=== PATIENT | female | born 1945 | race Caucasian/White ===

== ENCOUNTER 2023-06-19 08:10 | Outpatient (AMB) | payer MEDICARE, SELFPAY ==
[2023-06-19 08:29] VITALS: BP 110/72; PULSE 64; O2SAT 97; BMI 38.1
--- NOTE | 2023-06-19 08:29 | MHC.PC.OV ---
Vital Signs 06/19/23 08:29 Height 5 ft Weight 195 lb BMI 38.1 BP 110/72 Blood Pressure Location Lt brachial Position Sitting Pulse 64 Pulse Source Pulse Oximeter Pulse Oximetry (%) 97 Oxygen Delivery Method Room Air Intake Visit Reasons: 3 month follow up Intake Note: Pt is here today for 3 months follow up visit. Allergies atorvastatin [Lipitor] Allergy (Unknown, Verified 06/19/23 08:31) Muscle Pain latex Allergy (Unknown, Verified 06/19/23 08:31) Rash pravastatin [Pravachol] Allergy (Unknown, Verified 06/19/23 08:31) Muscle Pain lisinopril Adverse Reaction (Unknown, Verified 06/19/23 08:31) Cough Erythromycin Allergy (Unknown, Uncoded 06/19/23 08:31) upset stomach Medication List - Last Reconciled 06/19/23 by Kina Esparza MD albuterol sulfate 90 mcg/actuation (ProAir HFA) 2 puffs inhalation Q6H PRN amlodipine 5 mg PO DAILY atenolol 100 mg PO DAILY blood sugar diagnostic (Contour Next Test Strips) test once a day DX: E11.9 empagliflozin-linagliptin 25-5 mg (Glyxambi) 1 tab PO DAILY glimepiride 2 mg PO BID hydrochlorothiazide 25 mg PO DAILY lancets (Microlet Lancet) test once a day DX:E11.9 losartan 100 mg PO DAILY metformin 1,000 mg PO BID omeprazole 20 mg PO DAILY pravastatin 40 mg PO DAILY Tobacco use date assessed: 06/19/23 Dental Screening Dental Screen Date: 06/19/23 Did you have a dental visit in the last 12 months?: Yes Did you have a dental problem in the last 6 months where you did not have access to dental care?: No Was dental information given to patient?: Patient has dentist HPI 3 month follow up HPI Details Pt presents for f/u DM 2, HTN, hyperlipid, stable on meds. Pt could not afford Trulicity. PFSH Medical History (Updated 02/13/23 @ 10:18 by Kina Esparza MD) Asthma Diabetes HTN (hypertension) Hx of bone density study Hyperlipidemia Overweight Sciatica Surgical History No pertinent past surgical history Family History Father Heart disease Mother Diabetes Social History Housing: Apartment Alcohol intake: current Alcohol intake frequency: holidays/special occasions only Patient Tobacco Use Status: Never used Tobacco e-Cigarette/Vaping Use: Never Used Current occupational status: retired Cognitive needs: No Hearing needs: No Vision needs: No Questionnaire Thrive Questionnaire Date Thrive assessed: 02/13/23 JULIETA-7 AMB Questionnaire JULIETA-7 Date JULIETA - 7 assessed: 02/13/23 Source: Developed by Drs. Kenny Pal, Juanita Tobin, Yonatan Marlow and colleagues, with an educational milana from [employer]. Review of Systems Const All systems reviewed & are unremarkable except as noted in HPI and below Reports no additional complaints Eyes Reports no additional complaints Card Reports no additional complaints Resp Reports no additional complaints GI Reports no additional complaints Reports no additional complaints Physical exam (Primary Care) Vital Signs: Last Vital Signs Pulse 64 06/19/23 08:29 BP 110/72 06/19/23 08:29 Pulse Ox 97 06/19/23 08:29 Oxygen Delivery Method Room Air 06/19/23 08:29 BMI result Body Mass Index 38.1 Tobacco/Smoking Status: Tobacco use Status Tobacco use date assessed 06/19/23 06/19/23 08:34 Patient Tobacco Use Status Never used Tobacco 06/19/23 08:34 e-Cigarette/Vaping Use Never Used 06/19/23 08:34 Thrive Assessment: Date of Thrive Assessment Date Thrive assessed 02/13/23 06/19/23 08:34 Const General: no acute distress HENMT Head: Yes normal to inspection Eyes General: appearance normal, both eyes and all related structures Resp Effort & Inspection: normal respiratory effort Auscultation: clear to auscultation bilaterally Cardio Rhythm: regular rhythm Heart sounds: S1 normal heart sound present and S2 normal heart sound present GI Inspection: Yes normal to inspection Palpation (GI): Soft to palpation Percussion: Yes normal to percussion Auscultation: normal bowel sounds Assessment and Plan Assessment & Plan (1) Hyperlipidemia: Code(s): E78.5 - Hyperlipidemia, unspecified Plan: cont statin (2) Diabetes: Code(s): E11.9 - Type 2 diabetes mellitus without complications Plan: a1c is 7.9, ADA diet, exercise, weight loss discussed, pt will check the elias of Ozempic, she will try to get Shahram sensor f/u 4 months (3) HTN (hypertension): Code(s): I10 - Essential (primary) hypertension Plan: cont meds Orders: Orders Comprehensive [place]. Panel Fast 4 Months E11.9 - Type 2 diabetes mellitus without complications, E78.5 - Hyperlipidemia, unspecified, I10 - Essential (primary) hypertension Hemoglobin A1c 4 Months E11.9 - Type 2 diabetes mellitus without complications, E78.5 - Hyperlipidemia, unspecified, I10 - Essential (primary) hypertension Lipid Panel 4 Months E11.9 - Type 2 diabetes mellitus without complications, E78.5 - Hyperlipidemia, unspecified, I10 - Essential (primary) hypertension Microalbumin, Random (w Creat) 4 Months E11.9 - Type 2 diabetes mellitus without complications, E78.5 - Hyperlipidemia, unspecified, I10 - Essential (primary) hypertension Medications: New flash glucose sensor (FreeStyle Shahram 14 Day Sensor kit) As directed 1 ea 5RF E11.9 - Type 2 diabetes mellitus without complications Coding Level of Care Code Est Pt Level 4 (57171) Diagnoses Hyperlipidemia E78.5 Diabetes E11.9 HTN (hypertension) I10
== END 2023-06-19 15:24 | disposition home or self-care (01) ==
PROVIDERS: Visit Provider Internal Medicine
DX: E78.5 Hyperlipidemia, unspecified (principal); E11.9 Type 2 diabetes mellitus without complications; I10 Essential (primary) hypertension
CPT/HCPCS: 99214

== ENCOUNTER 2023-11-06 09:10 | Outpatient (AMB) | payer MEDICARE, SELFPAY ==
[2023-11-06 09:10] VITALS: BP 128/70; PULSE 73; O2SAT 96; BMI 37.5
--- NOTE | 2023-11-06 09:10 | A.OFFPC_ITS ---
Vital Signs 11/06/23 09:10 Height 5 ft Weight 192 lb BMI 37.5 BP 128/70 Blood Pressure Location Lt brachial Position Sitting Pulse 73 Pulse Source Pulse Oximeter Pulse Oximetry (%) 96 Oxygen Delivery Method Room Air Intake Visit Reasons: 4 month follow up DM Intake Note: Pt is here today for 4 months follow up visit on DM. Allergies atorvastatin [Lipitor] Allergy (Unknown, Verified 11/06/23 09:18) Muscle Pain latex Allergy (Unknown, Verified 11/06/23 09:18) Rash pravastatin [Pravachol] Allergy (Unknown, Verified 11/06/23 09:18) Muscle Pain lisinopril Adverse Reaction (Unknown, Verified 11/06/23 09:18) Cough Erythromycin Allergy (Unknown, Uncoded 11/06/23 09:18) upset stomach Tobacco use date assessed: 11/06/23 Fall risk assessment: No Falls in past year Last assessed Fall Risk: 11/06/23 Dental Screening Dental Screen Date: 11/06/23 Did you have a dental visit in the last 12 months?: Yes Did you have a dental problem in the last 6 months where you did not have access to dental care?: No Was dental information given to patient?: Patient has dentist HPI 4 month follow up DM HPI Details PRESENTS FOR THE FOLLOW-UP OF TYPE 2 DIABETES HYPERTENSION HYPERLIPIDEMIA. She reports increased gas, bloating and intermittent heartburn since she started higher dose (0.5 mg) of Ozempic. Patient also had an episode of hypoglycemia after exercise class with the glucose level dropping to 60s. PFS Medical History (Updated 02/13/23 @ 10:18 by Kina Esparza MD) Sciatica Overweight Hx of bone density study Asthma Hyperlipidemia HTN (hypertension) Diabetes Surgical History No pertinent past surgical history Family History Father Heart disease Mother Diabetes Social History Housing: Apartment Alcohol intake: current Alcohol intake frequency: holidays/special occasions only Patient Tobacco Use Status: Never used Tobacco e-Cigarette/Vaping Use: Never Used Current occupational status: retired Cognitive needs: No Hearing needs: No Vision needs: No Questionnaire PHQ-9 Over the last 2 weeks, how often have you been bothered by any of the following problems? 1. Little interest or pleasure in doing things: not at all 2. Feeling down, depressed, or hopeless: not at all 3. Trouble falling or staying asleep, or sleeping too much: not at all 4. Feeling tired or having little energy: not at all 5. Poor appetite or overeating: not at all 6. Feeling bad about yourself - or that you are a failure or have let yourself or your family down: not at all 7. Trouble concentrating on things, such as reading the newspaper or watching television: not at all 8. Moving or speaking so slowly that other people could have noticed. Or the opposite - being so fidgety or restless that you have been moving around a lot more than usual: not at all 9. Thoughts that you would be better off or of hurting yourself in some wa y: not at all Total score: 0 Depression Screening Interpretation: Negative Depression Screening Done: Yes Source: Developed by Drs. Kenny Pal, Juanita Tobin, Yonatan Marlow and colleagues, with an educational milana from [employer]. Thrive Questionnaire Date Thrive assessed: 11/06/23 I am a: Patient What is your living situation today?: I have a steady place to live Within the past 12 months, did the food you bought not last and you didn't have the money to get more?: Never true Within the past 12 months, did you worry whether your food would run out before you got money to buy more?: Never true Do you have trouble paying for medicines?: No Do you have trouble getting transportation to medical appointments?: No Do you have trouble paying your heating and electricity bill?: No Do you have trouble taking care of your child, family member or friend?: No Do you have trouble with day-to-day activities such as bathing, preparing meals, shopping, managing finances, etc.?: No Are you currently unemployed and looking for a job?: No Are you interested in more education?: No Please select the resources that you would like help with: None Currently or been in a relationship where the following occur: no concerns reported AUDIT C Alcohol Use Questionnaire (AUDIT-C) 1. How often do you have a drink containing alcohol?: Never 3. How often do you have six or more drinks on one occasion?: Never Total Score: 0 JULIETA-7 AMB Questionnaire JULIETA-7 Date JULIETA - 7 assessed: 11/06/23 Feeling nervous, anxious, or on edge: 0 = Not at all Not being able to stop or control worryin = Not at all Worrying too much about different things: 0 = Not at all Trouble relaxin = Not at all Being so restless that it is hard to sit still: 0 = Not at all Becoming easily annoyed or irritable: 0 = Not at all Feeling afraid as if something awful might happen: 0 = Not at all Total JULIETA-7 score (0-4 normal; 5-9 mild; 10-14 moderate; 15-21 severe): 0 Source: Developed by Drs. Kenny Pal, Juanita Tobin, Yonatan Marlow and colleagues, with an educational milana from [employer]. Review of Systems Const All systems reviewed & are unremarkable except as noted in HPI and below Reports no additional complaints Eyes Reports no additional complaints ENT Reports no additional complaints Card Reports no additional complaints Resp Reports no additional complaints GI Reports no additional complaints Reports no additional complaints Physical exam (Primary Care) Vital Signs: Last Vital Signs Pulse 73 11/06/23 09:10 BP 128/70 11/06/23 09:10 Pulse Ox 96 11/06/23 09:10 Oxygen Delivery Method Room Air 11/06/23 09:10 BMI result Body Mass Index 37.5 Tobacco/Smoking Status: Tobacco use Status Tobacco use date assessed 11/06/23 11/06/23 09:20 Patient Tobacco Use Status Never used Tobacco 11/06/23 09:20 e-Cigarette/Vaping Use Never Used 11/06/23 09:10 PHQ-9: PHQ-9 Score PHQ-9: Total score 0 11/06/23 09:21 Depression Screening Interpretation: Negative Thrive Assessment: Date of Thrive Assessment Date Thrive assessed 11/06/23 11/06/23 09:21 Currently or been in a relationship where the following occur: no concerns reported Const General: no acute distress HENMT Head: Yes normal to inspection Ears: hearing grossly normal bilaterally Face and sinus: Yes normal facial exam Eyes General: appearance normal, both eyes and all related structures Neck Neck: Yes no lymphadenopathy and Yes supple Resp Effort & Inspection: normal respiratory effort Auscultation: clear to auscultation bilaterally Cardio Rhythm: regular rhythm Heart sounds: S1 normal heart sound present and S2 normal heart sound present GI Inspection: Yes normal to inspection Palpation (GI): Soft to palpation Percussion: Yes normal to percussion Auscultation: normal bowel sounds Assessment and Plan Assessment & Plan (1) Hyperlipidemia: Code(s): E78.5 - Hyperlipidemia, unspecified Plan: Continue statin and low-cholesterol diet (2) Diabetes: Code(s): E11.9 - Type 2 diabetes mellitus without complications Plan: A1c is down to 7.4, ADA diet regular physical activity discussed with the patient. She was advised to stop taking glimepiride in the AM and monitoring her fasting blood glucose if she has persistent hypoglycemia she was advised to discontinue glimepiride completely. For increased bloating after increasing dose to 0.5 mg weekly patient was advised to decrease Ozempic to 0.25 mg weekly. Follow-up in 3 months with a fasting labs before (3) HTN (hypertension): Code(s): I10 - Essential (primary) hypertension Plan: Continue current medications Orders: Orders Hemoglobin A1c 3 Months E11.9 - Type 2 diabetes mellitus without complications, E78.5 - Hyperlipidemia, unspecified, I10 - Essential (primary) hypertension Complete Blood Count Auto Diff 3 Months E11.9 - Type 2 diabetes mellitus without complications, E78.5 - Hyperlipidemia, unspecified, I10 - Essential (primary) hypertension Comprehensive [place]. Panel Fast 3 Months E11.9 - Type 2 diabetes mellitus without complications, E78.5 - Hyperlipidemia, unspecified, I10 - Essential (primary) hypertension Lipid Panel 3 Months E11.9 - Type 2 diabetes mellitus without complications, E78.5 - Hyperlipidemia, unspecified, I10 - Essential (primary) hypertension Microalbumin, Random (w Creat) 3 Months E11.9 - Type 2 diabetes mellitus without complications, E78.5 - Hyperlipidemia, unspecified, I10 - Essential (primary) hypertension Medications: New Dexcom G7 Sensor (blood-glucose sensor) As directed 3 ea 4RF NS Coding Level of Care Code Est Pt Level 4 (51604) Diagnoses Hyperlipidemia E78.5 Diabetes E11.9 HTN (hypertension) I10
== END 2023-11-06 10:21 | disposition home or self-care (01) ==
PROVIDERS: PCP Internal Medicine; Visit Provider Internal Medicine
DX: E78.5 Hyperlipidemia, unspecified (principal); E11.69 Type 2 diabetes mellitus with other specified complication; I10 Essential (primary) hypertension
CPT/HCPCS: 99214

== ENCOUNTER 2024-03-18 10:13 | Outpatient (AMB) | payer MEDICARE, SELFPAY ==
--- NOTE | 2024-03-18 10:54 | AM.OFFVISMDC ---
Intake Vital Signs 03/18/24 10:55 Height 5 ft Weight 189 lb BMI 36.9 BP 136/74 Blood Pressure Location Lt brachial Position Sitting Pulse 71 Pulse Source Pulse Oximeter Pulse Oximetry (%) 95 Oxygen Delivery Method Room Air Intake Visit Reasons: SWV G0439 Intake Note: Pt is here today for her SWV Allergies atorvastatin [Lipitor] Allergy (Unknown, Verified 03/18/24 10:56) Muscle Pain latex Allergy (Unknown, Verified 03/18/24 10:56) Rash pravastatin [Pravachol] Allergy (Unknown, Verified 03/18/24 10:56) Muscle Pain lisinopril Adverse Reaction (Unknown, Verified 03/18/24 10:56) Cough Erythromycin Allergy (Unknown, Uncoded 03/18/24 10:56) upset stomach Medication List - Last Reconciled 03/18/24 by Kina Esparza MD albuterol sulfate 90 mcg/actuation (ProAir HFA) 2 puffs inhalation Q6H PRN amlodipine 5 mg PO DAILY atenolol 100 mg PO DAILY blood sugar diagnostic (Contour Next Test Strips) test once a day DX: E11.9 Dexcom G7 Sensor (blood-glucose sensor) As directed NS empagliflozin-linagliptin 25-5 mg (Glyxambi) 1 tab PO DAILY flash glucose sensor (FreeStyle Shahram 14 Day Sensor kit) As directed hydrochlorothiazide 25 mg PO DAILY lancets (Microlet Lancet) test once a day DX:E11.9 losartan 100 mg PO DAILY metformin 1,000 mg PO BID omeprazole 20 mg PO DAILY Ozempic (semaglutide) 1 mg (0.75 mL) subcut QWEEK NS pravastatin 40 mg PO DAILY HPI SWV G0439 HPI Details Initiated the conversation about Advanced Directives. Advanced Directives help? patients prepare for current and future decisions about their medical treatment? and place of care. Discussed with patient that it is a process where a patients? current condition and prognosis are reviewed, their wishes for information? regarding their illness are elicited, and likely medical dilemmas are presented? and options discussed. The form can be amended as needed, reviewed yearly and? make changes as needed IPPE/AWV ? year old presents? for her ? Annual? Wellness Visit, initial visit.? Medical / Social History Reviewed? Past Medical History ?Yes? . ? [place]? of Care / Care Team list updated ?Yes . ? Surgical/Hospitalization? History ?Yes . ? Current Medications? (including OTC and supplements) ?Yes . ? Family History ?Yes? . ? Tobacco? Control form ?Yes . ? AUDIT-C (Alcohol use) form? ?Yes . ? Illicit drug use in Social? History ?Yes . ? Current diagnosis of? depression? ?No ? Appropriate PHQ2/PHQ9? completed ?Yes . ? Data entered by ?Medical? [employer] and reviewed by provider ? Fall Risk ? Fall? History? Have you had any falls with? injury in the past year? ?No . ? Have you had two or more? falls in the past year? ?No . ? Fall Risk Assessment: ?No? falls in the past year . ? HRA filled out by? the patient, reviewed by Provider and scanned. ? IPPE/AWV ? Balance? [place]? ?Yes . ? Tandem? walk ?Yes . ? Walk and? Turn ?Yes . ? Rise from? sit to stand ?Yes . ?Vision? Corrective? lens ?Yes ? Vision? screen ? Up-to-date, has an appointment [] for vision? screening and glaucoma screening ?Hearing? Whisper? test ?pass .? Initiated the conversation about Advanced Directives. Advanced Directives help? patients prepare for current and future decisions about their medical treatment? and place of care. Discussed with patient that it is a process where a patients? current condition and prognosis are reviewed, their wishes for information? regarding their illness are elicited, and likely medical dilemmas are presented? and options discussed. The form can be amended as needed, reviewed yearly and? make changes as needed Written? Plan?Completed. See Patient? Documents. [facility] Medical History (Updated 03/18/24 @ 14:51 by Kina Esparza MD) Sciatica Overweight Hx of bone density study Asthma Hyperlipidemia HTN (hypertension) Diabetes Surgical History No pertinent past surgical history Family History Father Heart disease Mother Diabetes Social History Housing: Apartment Alcohol intake: current Alcohol intake frequency: holidays/special occasions only Patient Tobacco Use Status: Never used Tobacco e-Cigarette/Vaping Use: Never Used Current occupational status: retired Cognitive needs: No Hearing needs: No Vision needs: No Questionnaire Medicare Wellness Checkup [age] What gender do you identify with?: female During the past 4 weeks, how much have you been bothered by emotional problems such as feeling anxious, depressed, irritable, sad or downhearted, and blue?: not at all During the past 4 weeks, has your physical & emotional health limited your social activities with family, friends, neighbors, or groups?: not at all During the past 4 weeks, how much bodily pain have you generally had?: very mild pain During the past 4 weeks, was someone available to help you if you needed & wanted help?: yes, as much as I wanted During the past 4 weeks, what was the hardest physical activity you could do for at least 2 minutes?: moderate Can you get to places out of walking distance without help? (For eg., can you travel alone on buses, taxis or drive your car?): Yes Can you go shopping for groceries or clothes without someone's help?: Yes Can you prepare your own meals?: Yes Can you do your housework without help?: Yes Because of any health problems, do you need the help of another person with your personal care needs such as eating, bathing, dressing or getting around the house?: No Can you handle your own money without help?: Yes During the past 4 weeks, how would you rate your health in general?: good During the past 4 weeks how have things been going for you?: pretty well Are you having difficulties driving your car?: no Do you always fasten your seat belt when you are in a car?: yes, usually During past 4 weeks, have you been bothered by the following: never: Falling or dizzy when standing up, Sexual problems?, Trouble eating well?, Teeth or denture problems?, Problems using the telephone? and Tiredness or fatigue? Have you fallen 2 or more times in the past year?: No Are you afraid of falling?: Yes Are you a smoker?: no During the past 4 weeks, how many drinks of wine, beer, or other alcoholic beverages did you have?: no alcohol at all Do you exercise for about 20 minutes 3 or more times a week?: yes, all the time Have you been given information to help with the following?: yes: Hazards in your house that might hurt you? and yes: Keeping track of your medications? How often do you have trouble taking medicines the way you have been told to take them?: I always take medicine as prescribed How confident are you that you can control & manage most of your health problems?: very confident What is your race?: White Mini Mental State Exam (MMSE) Orientation What is the (year) (season) (date) (day) (month)?: year, season, date, day and month Where are we (state) (county) (town or city) (hospital) (floor)?: state, county, town or city, hospital/clinic and floor Registration Name of 3 unrelated objects clearly and slowly, then ask patient to repeat all 3 of them. (1st repeat determines score. Make sure they can repeat all three): object 1, object 2 and object 3 Attention & Calculation (CHOOSE ONE) Spell WORLD backwards (DLROW): 5 letters Recall Ask patient to repeat the 3 items from question #3.: object 1, object 2 and object 3 Language Show patient a wristwatch & ask what it is. Repeat for pencil.: watch and pencil Ask the patient to repeat the phrase 'No ifs, ands, or buts' after you.: correct Ask the patient to 'take a piece of paper with their right hand' 'fold paper in half' 'place paper on floor': take paper in right hand, fold paper in half and place paper on floor Print the sentence 'CLOSE YOUR EYES' on a piece. If patient actually closes eyes then score.: followed written direction Give patient a blank piece of paper & ask to write a sentence. Score if it contains a noun & verb.: sentence contains subject and verb Score Score: 29 PHQ-9 Over the last 2 weeks, how often have you been bothered by any of the following problems? 1. Little interest or pleasure in doing things: not at all 2. Feeling down, depressed, or hopeless: not at all 3. Trouble falling or staying asleep, or sleeping too much: not at all 4. Feeling tired or having little energy: not at all 5. Poor appetite or overeating: not at all 6. Feeling bad about yourself - or that you are a failure or have let yourself or your family down: not at all 7. Trouble concentrating on things, such as reading the newspaper or watching television: not at all 8. Moving or speaking so slowly that other people could have noticed. Or the opposite - being so fidgety or restless that you have been moving around a lot more than usual: not at all 9. Thoughts that you would be better off or of hurting yourself in some way: not at all Total score: 0 Depression Screening Interpretation: Negative Depression Screening Done: Yes 75931 - PHQ-9 Billing: Yes Source: Developed by Drs. Kenny Pal, Juanita Tobin, Yonatan Marlow and colleagues, with an educational milana from [employer]. Review of Systems Const All systems reviewed & are unremarkable except as noted in HPI and below Eyes Reports no additional complaints ENT Reports no additional complaints Card Reports no additional complaints Resp Reports no additional complaints GI Reports no additional complaints Reports no additional complaints Physical Exam Vital Signs: Last Vital Signs Pulse 71 03/18/24 10:55 BP 136/74 03/18/24 10:55 Pulse Ox 95 03/18/24 10:55 Oxygen Delivery Method Room Air 03/18/24 10:55 BMI result Body Mass Index 36.9 Const General: no acute distress HEENT Head: Yes normal to inspection Ears: hearing grossly normal bilaterally Neck Neck: Yes no lymphadenopathy and Yes supple Resp Effort & Inspection: normal respiratory effort Auscultation: clear to auscultation bilaterally Cardio Rhythm: regular rhythm Heart sounds: S1 normal heart sound present and S2 normal heart sound present GI Inspection: Yes normal to inspection Palpation (GI): Soft to palpation Percussion: Yes normal to percussion Auscultation: normal bowel sounds Extrem General: Yes no clubbing, cyanosis or edema Assessment & Plan Assessment & Plan (1) Diabetes: Code(s): E11.9 - Type 2 diabetes mellitus without complications Plan: A1c is 7.6 ADA diet increase physical activity weight loss discussed with the patient. She was advised to stop glimepiride because of hypoglycemic episodes and increase Ozempic to 1 mg weekly. Follow-up in 4 months with a fasting labs before (2) HTN (hypertension): Code(s): I10 - Essential (primary) hypertension Plan: Continue current medications (3) Hyperlipidemia: Code(s): E78.5 - Hyperlipidemia, unspecified Plan: Continue statin (4) Annual physical exam: Code(s): Z00.00 - Encounter for general adult medical examination without abnormal findings Plan: Well-balanced diet regular physical activity weight loss discussed with the patient. She is up-to-date with mammogram Orders: Orders Comprehensive [place]. Panel Fast 4 Months E11.9 - Type 2 diabetes mellitus without complications, E78.5 - Hyperlipidemia, unspecified, I10 - Essential (primary) hypertension Hemoglobin A1c 4 Months E11.9 - Type 2 diabetes mellitus without complications, E78.5 - Hyperlipidemia, unspecified, I10 - Essential (primary) hypertension Lipid Panel 4 Months E11.9 - Type 2 diabetes mellitus without complications, E78.5 - Hyperlipidemia, unspecified, I10 - Essential (primary) hypertension Microalbumin, Random (w Creat) 4 Months E11.9 - Type 2 diabetes mellitus without complications, E78.5 - Hyperlipidemia, unspecified, I10 - Essential (primary) hypertension Medications: New Ozempic (semaglutide) 1 mg (0.75 mL) subcut QWEEK 9 mL 1RF NS Discontinued semaglutide (Ozempic) 0.25 mg weekly for 4 weeks, then 0.5 mg Q week Discontinued Reason: Doctor's Order 0.25 mg (0.368 mL) subcut QWEEK 9 mL 1RF glimepiride Discontinued Reason: Doctor's Order 2 mg PO BID 180 tabs 3RF Quality Reporting (2019) Depression/Bipolar (159/160/161/177) PHQ-9: Total score: 0 Coding Level of Care Code Medicare Subsequent (G0439) Diagnoses Diabetes E11.9 HTN (hypertension) I10 Hyperlipidemia E78.5 Annual physical exam Z00.00 CPT Codes Advance Care Planning - Advance Care Planning discussion: On file, no changes ([id number]) Advance Care Planning - Time spent: 1-15 minutes, on File ([id number]) Advance Care Planning Advance Care Planning discussion: On file, no changes Forms completed: Health Care Proxy Time spent: 1-15 minutes, on File
[2024-03-18 10:55] VITALS: BP 136/74; PULSE 71; O2SAT 95; BMI 36.9
== END 2024-03-18 11:31 | disposition home or self-care (01) ==
PROVIDERS: PCP Internal Medicine; Visit Provider Internal Medicine
DX: Z00.00 Encounter for general adult medical examination without abnormal findings (principal); E11.65 Type 2 diabetes mellitus with hyperglycemia; I10 Essential (primary) hypertension; E78.5 Hyperlipidemia, unspecified
CPT/HCPCS: 1123F; G0439

== ENCOUNTER 2024-07-22 09:09 | Outpatient (AMB) | payer MEDICARE, SELFPAY ==
[2024-07-22 09:36] VITALS: BP 116/68; PULSE 65; O2SAT 95; BMI 34.8
--- NOTE | 2024-07-22 09:36 | A.OFFPC_ITS ---
Vital Signs 07/22/24 09:36 Height 5 ft Weight 178 lb BMI 34.8 BP 116/68 Blood Pressure Location Lt brachial Position Sitting Pulse 65 Pulse Source Pulse Oximeter Pulse Oximetry (%) 95 Oxygen Delivery Method Room Air Intake Visit Reasons: 4 month follow up Intake Note: Pt is here today for 4 months follow up visit on labs. Allergies atorvastatin [Lipitor] Allergy (Unknown, Verified 07/22/24 09:40) Muscle Pain latex Allergy (Unknown, Verified 07/22/24 09:40) Rash pravastatin [Pravachol] Allergy (Unknown, Verified 07/22/24 09:40) Muscle Pain lisinopril Adverse Reaction (Unknown, Verified 07/22/24 09:40) Cough Erythromycin Allergy (Unknown, Uncoded 07/22/24 09:40) upset stomach Medication List - Last Reconciled 07/22/24 by Kina Esparza MD albuterol sulfate 90 mcg/actuation (ProAir HFA) 2 puffs inhalation Q6H PRN amlodipine 5 mg PO DAILY atenolol 100 mg PO DAILY blood sugar diagnostic (Contour Next Test Strips) test once a day DX: E11.9 Dexcom G7 Sensor (blood-glucose sensor) As directed NS empagliflozin-linagliptin 25-5 mg (Glyxambi) 1 tab PO DAILY flash glucose sensor (FreeStyle Shahram 14 Day Sensor kit) As directed hydrochlorothiazide 25 mg PO DAILY lancets (Microlet Lancet) test once a day DX:E11.9 losartan 100 mg PO DAILY metformin 1,000 mg PO BID omeprazole 20 mg PO DAILY Ozempic (semaglutide) 1 mg (0.75 mL) subcut QWEEK NS pravastatin 40 mg PO DAILY Tobacco use date assessed: 07/22/24 Fall risk assessment: No Falls in past year Last assessed Fall Risk: 07/22/24 Dental Screening Dental Screen Date: 07/22/24 Did you have a dental visit in the last 12 months?: Yes Did you have a dental problem in the last 6 months where you did not have access to dental care?: No Was dental information given to patient?: Patient has dentist HPI 4 month follow up HPI Details Patient presents for the follow-up of type 2 diabetes hypertension hyperlipidemia. She has been eating lot of fruits and grains and reports high blood glucose readings. Patient has been under stress moving to [facility] at the end of July. [facility] Medical History Sciatica Overweight Hx of bone density study Asthma Hyperlipidemia HTN (hypertension) Diabetes Surgical History No pertinent past surgical history Family History Father Heart disease Mother Diabetes Social History Housing: Apartment Alcohol intake: current Alcohol intake frequency: holidays/special occasions only Patient Tobacco Use Status: Never used Tobacco e-Cigarette/Vaping Use: Never Used service: No Current occupational status: retired Cognitive needs: No Hearing needs: No Vision needs: No Questionnaire PHQ-9 Over the last 2 weeks, how often have you been bothered by any of the following problems? 1. Little interest or pleasure in doing things: not at all 2. Feeling down, depressed, or hopeless: not at all 3. Trouble falling or staying asleep, or sleeping too much: not at all 4. Feeling tired or having little energy: not at all 5. Poor appetite or overeating: not at all 6. Feeling bad about yourself - or that you are a failure or have let yourself or your family down: not at all 7. Trouble concentrating on things, such as reading the newspaper or watching television: not at all 8. Moving or speaking so slowly that other people could have noticed. Or the opposite - being so fidgety or restless that you have been moving around a lot more than usual: not at all 9. Thoughts that you would be better off or of hurting yourself in some way: not at all Total score: 0 Depression Screening Interpretation: Negative Depression Screening Done: Yes 41644 - PHQ-9 Billing: Yes Source: Developed by Drs. Kenny Pal, Juanita Tobin, Yonatan Marlow and colleagues, with an educational milana from [employer]. Thrive Questionnaire Date Thrive assessed: 07/22/24 I am a: Patient What is your living situation today?: I have a steady place to live Within the past 12 months, did the food you bought not last and you didn't have the money to get more?: Never true Within the past 12 months, did you worry whether your food would run out before you got money to buy more?: Never true Do you have trouble paying for medicines?: Yes Do you have trouble getting transportation to medical appointments?: No Do you have trouble paying your heating and electricity bill?: No Do you have trouble taking care of your child, family member or friend?: No Do you have trouble with day-to-day activities such as bathing, preparing meals, shopping, managing finances, etc.?: No Are you interested in more education?: No Please select the resources that you would like help with: None Currently or been in a relationship where the following occur: No concerns reported THRIVE Score: 0 AUDIT C Alcohol Use Questionnaire (AUDIT-C) 1. How often do you have a drink containing alcohol?: Never 3. How often do you have six or more drinks on one occasion?: Never Total Score: 0 JULIETA-7 AMB Questionnaire JULIETA-7 Date JULIETA - 7 assessed: 07/22/24 Feeling nervous, anxious, or on edge: 0 = Not at all Not being able to stop or control worryin = Not at all Worrying too much about different things: 0 = Not at all Trouble relaxin = Not at all Being so restless that it is hard to sit still: 0 = Not at all Becoming easily annoyed or irritable: 0 = Not at all Feeling afraid as if something awful might happen: 0 = Not at all Total JULIETA-7 score (0-4 normal; 5-9 mild; 10-14 moderate; 15-21 severe): 0 Source: Developed by Drs. Kenny Pal, Juanita Tobin, Yonatan Marlow and colleagues, with an educational milana from [employer]. JULIETA-7 Assessment Billing JULIETA-7 Assessment Tool: JULIETA-7 Assessment [id number] Review of Systems Const All systems reviewed & are unremarkable except as noted in HPI and below Eyes Reports no additional complaints ENT Reports no additional complaints Card Reports no additional complaints Resp Reports no additional complaints GI Reports no additional complaints Reports no additional complaints Physical exam (Primary Care) Vital Signs: Last Vital Signs Pulse 65 07/22/24 09:36 BP 116/68 07/22/24 09:36 Pulse Ox 95 07/22/24 09:36 Oxygen Delivery Method Room Air 07/22/24 09:36 BMI result Body Mass Index 34.8 Tobacco/Smoking Status: Tobacco use Status Tobacco use date assessed 07/22/24 07/22/24 09:40 Patient Tobacco Use Status Never used Tobacco 07/22/24 09:40 e-Cigarette/Vaping Use Never Used 07/22/24 09:38 PHQ-9: PHQ-9 Score PHQ-9: Total score 0 07/22/24 09:58 Depression Screening Interpretation: Negative Thrive Assessment: Date of Thrive Assessment Date Thrive assessed 07/22/24 07/22/24 09:58 Currently or been in a relationship where the following occur: No concerns reported Const General: no acute distress HENMT Mouth: Normal oral and palatal mucosa present Eyes General: appearance normal, both eyes and all related structures Resp Effort & Inspection: normal respiratory effort Auscultation: clear to auscultation bilaterally Cardio Rhythm: regular rhythm Heart sounds: S1 normal heart sound present and S2 normal heart sound present GI Inspection: Yes normal to inspection Palpation (GI): Soft to palpation Percussion: Yes normal to percussion Assessment and Plan Assessment & Plan (1) Hyperlipidemia: Code(s): E78.5 - Hyperlipidemia, unspecified Plan: cont statin (2) Diabetes: Code(s): E11.9 - Type 2 diabetes mellitus without complications Plan: A1C is 8.1, continue ADA diet increase physical activity and weight loss discussed with the patient. She will increase Ozempic to 2 mg weekly, continue Glyxambi and metformin follow-up in 3 months (3) HTN (hypertension): Code(s): I10 - Essential (primary) hypertension Plan: Blood pressure is low and hydrochlorothiazide will be discontinued. Patient will continue amlodipine atenolol and losartan Orders: Orders Complete Blood Count Auto Diff 3 Months E11.9 - Type 2 diabetes mellitus without complications, E78.5 - Hyperlipidemia, unspecified, I10 - Essential (primary) hypertension Lipid Panel 3 Months E11.9 - Type 2 diabetes mellitus without complications, E78.5 - Hyperlipidemia, unspecified, I10 - Essential (primary) hypertension Microalbumin, Random (w Creat) 3 Months E11.9 - Type 2 diabetes mellitus without complications, E78.5 - Hyperlipidemia, unspecified, I10 - Essential (primary) hypertension Comprehensive [place]. Panel Fast 3 Months E11.9 - Type 2 diabetes mellitus without complications, E78.5 - Hyperlipidemia, unspecified, I10 - Essential (primary) hypertension Hemoglobin A1c 3 Months E11.9 - Type 2 diabetes mellitus without complications, E78.5 - Hyperlipidemia, unspecified, I10 - Essential (primary) hypertension Medications: New Ozempic (semaglutide) 2 mg (0.75 mL) subcut QWEEK 9 mL 3RF NS Discontinued Ozempic (semaglutide) Discontinued Reason: Doctor's Order 1 mg (0.75 mL) subcut QWEEK 9 mL 1RF NS hydrochlorothiazide Discontinued Reason: Doctor's Order 25 mg PO DAILY 90 tabs 3RF Coding Level of Care Code Est Pt Level 4 (21273) Diagnoses Hyperlipidemia E78.5 Diabetes E11.9 HTN (hypertension) I10 Additional Codes JULIETA-7 Assessment Billing - JULIETA-7 Assessment Tool: JULIETA-7 Assessment [id number] ([id number])
== END 2024-07-22 10:31 | disposition home or self-care (01) ==
PROVIDERS: PCP Internal Medicine; Visit Provider Internal Medicine
DX: E78.5 Hyperlipidemia, unspecified (principal); E11.9 Type 2 diabetes mellitus without complications; I10 Essential (primary) hypertension

== ENCOUNTER → 2024-07-22 09:09 | Outpatient (BNVA) | payer MEDICARE, SELFPAY | PROVIDERS: PCP Internal Medicine; Visit Provider Internal Medicine | DX: E78.5 Hyperlipidemia, unspecified (principal); E11.9 Type 2 diabetes mellitus without complications; I10 Essential (primary) hypertension | CPT/HCPCS: 96127; 99212 ==

== ENCOUNTER 2024-10-15 09:17 | Outpatient (AMB) | payer MEDICARE, SELFPAY ==
[2024-10-15 09:18] VITALS: BP 118/74; PULSE 71; O2SAT 98; BMI 33.8
--- NOTE | 2024-10-15 09:18 | A.OFFPC_ITS ---
Vital Signs 10/15/24 09:18 Height 5 ft Weight 173 lb BMI 33.8 BP 118/74 Blood Pressure Location Lt brachial Position Sitting Pulse 71 Pulse Source Pulse Oximeter Pulse Oximetry (%) 98 Oxygen Delivery Method Room Air Intake Visit Reasons: 6 months f/up Intake Note: Pt is here today for 3 months follow up visit on labs. Allergies atorvastatin [Lipitor] Allergy (Unknown, Verified 10/15/24 09:23) Muscle Pain latex Allergy (Unknown, Verified 10/15/24 09:23) Rash pravastatin [Pravachol] Allergy (Unknown, Verified 10/15/24 09:23) Muscle Pain lisinopril Adverse Reaction (Unknown, Verified 10/15/24 09:23) Cough Erythromycin Allergy (Unknown, Uncoded 10/15/24 09:23) upset stomach Medication List - Last Reconciled 10/15/24 by Kina Esparza MD albuterol sulfate 90 mcg/actuation (ProAir HFA) 2 puffs inhalation Q6H PRN amlodipine 5 mg PO DAILY atenolol 100 mg PO DAILY blood sugar diagnostic (Contour Next Test Strips) test once a day DX: E11.9 Dexcom G7 Sensor (blood-glucose sensor) As directed NS empagliflozin-linagliptin 25-5 mg (Glyxambi) 1 tab PO DAILY flash glucose sensor (FreeStyle Shahram 14 Day Sensor kit) As directed lancets (Microlet Lancet) test once a day DX:E11.9 losartan 100 mg PO DAILY metformin 1,000 mg PO BID omeprazole 20 mg PO DAILY Ozempic (semaglutide) 2 mg (0.75 mL) subcut QWEEK NS pravastatin 40 mg PO DAILY Tobacco use date assessed: 10/15/24 Dental Screening Dental Screen Date: 07/22/24 HPI 6 months f/up HPI Details Pt presents for DM 2, hyperlipid, HTN, stable on meds. Patient lost 20 lb within the last 10 months. She has been physically active swimming 4 times a week and walking. PFSH Medical History Sciatica Overweight Hx of bone density study Asthma Hyperlipidemia HTN (hypertension) Diabetes Surgical History No pertinent past surgical history Family History Father Heart disease Mother Diabetes Social History Housing: Apartment Alcohol intake: current Alcohol intake frequency: holidays/special occasions only Patient Tobacco Use Status: Never used Tobacco e-Cigarette/Vaping Use: Never Used service: No Current occupational status: retired Cognitive needs: No Hearing needs: No Vision needs: No Questionnaire PHQ-9 Over the last 2 weeks, how often have you been bothered by any of the following problems? 6. Feeling bad about yourself - or that you are a failure or have let yourself or your family down: not at all Source: Developed by Drs. Kenny Pal, Juanita Tobin, Yonatan Marlow and colleagues, with an educational milana from [employer]. Thrive Questionnaire Date Thrive assessed: 07/15/24 I am a: Patient What is your living situation today?: I have a steady place to live Within the past 12 months, did the food you bought not last and you didn't have the money to get more?: Never true Within the past 12 months, did you worry whether your food would run out before you got money to buy more?: Never true Do you have trouble paying for medicines?: Yes Do you have trouble getting transportation to medical appointments?: No Do you have trouble paying your heating and electricity bill?: No Do you have trouble taking care of your child, family member or friend?: No Do you have trouble with day-to-day activities such as bathing, preparing meals, shopping, managing finances, etc.?: No Are you currently unemployed and looking for a job?: No Are you interested in more education?: No Please select the resources that you would like help with: None Currently or been in a relationship where the following occur: No concerns reported THRIVE Score: 0 JULIETA-7 AMB Questionnaire JULIETA-7 Date JULIETA - 7 assessed: 07/22/24 Source: Developed by Drs. Kenny Pal, Yonatan Fortune and colleagues, with an educational milana from [employer]. Review of Systems Const All systems reviewed & are unremarkable except as noted in HPI and below Eyes Reports no additional complaints ENT Reports no additional complaints Card Reports no additional complaints Resp Reports no additional complaints GI Reports no additional complaints Reports no additional complaints Physical exam (Primary Care) Vital Signs: Last Vital Signs Pulse 71 10/15/24 09:18 BP 118/74 10/15/24 09:18 Pulse Ox 98 10/15/24 09:18 Oxygen Delivery Method Room Air 10/15/24 09:18 BMI result Body Mass Index 33.8 Tobacco/Smoking Status: Tobacco use Status Tobacco use date assessed 10/15/24 10/15/24 09:24 Patient Tobacco Use Status Never used Tobacco 10/15/24 09:19 e-Cigarette/Vaping Use Never Used 10/15/24 09:19 Thrive Assessment: Date of Thrive Assessment Date Thrive assessed 07/15/24 10/15/24 09:19 Currently or been in a relationship where the following occur: No concerns reported Const General: no acute distress HENMT Head: Yes normal to inspection Face and sinus: Yes normal facial exam Resp Effort & Inspection: normal respiratory effort Auscultation: clear to auscultation bilaterally Cardio Rhythm: regular rhythm Heart sounds: S1 normal heart sound present and S2 normal heart sound present GI Inspection: Yes normal to inspection Palpation (GI): Soft to palpation Percussion: Yes normal to percussion Auscultation: normal bowel sounds Coding Level of Care Code Est Pt Level 4 (34463) Diagnoses Diabetes E11.9 HTN (hypertension) I10 Hyperlipidemia E78.5 Assessment & Plan Assessment & Plan (1) Diabetes: Code(s): E11.9 - Type 2 diabetes mellitus without complications Category: Medical Plan: A1c is down to 7.3 from 8.1 in June. Continue ADA diet regular physical activity current medications follow-up in 5 months (2) HTN (hypertension): Code(s): I10 - Essential (primary) hypertension Category: Medical Plan: Continue current medications (3) Hyperlipidemia: Code(s): E78.5 - Hyperlipidemia, unspecified Category: Medical Plan: Continue statin Orders: Orders Complete Blood Count Auto Diff 5 Months E11.9 - Type 2 diabetes mellitus without complications, E78.5 - Hyperlipidemia, unspecified, I10 - Essential (primary) hypertension Microalbumin, Random (w Creat) 5 Months E11.9 - Type 2 diabetes mellitus without complications, E78.5 - Hyperlipidemia, unspecified, I10 - Essential (primary) hypertension Comprehensive [employer] Panel Fast 5 Months E11.9 - Type 2 diabetes mellitus without complications, E78.5 - Hyperlipidemia, unspecified, I10 - Essential (primary) hypertension Hemoglobin A1c 5 Months E11.9 - Type 2 diabetes mellitus without complications, E78.5 - Hyperlipidemia, unspecified, I10 - Essential (primary) hypertension Lipid Panel 5 Months E11.9 - Type 2 diabetes mellitus without complications, E78.5 - Hyperlipidemia, unspecified, I10 - Essential (primary) hypertension
== END 2024-10-15 10:27 | disposition home or self-care (01) ==
PROVIDERS: PCP Internal Medicine; Visit Provider Internal Medicine
DX: E11.9 Type 2 diabetes mellitus without complications (principal); I10 Essential (primary) hypertension; E78.5 Hyperlipidemia, unspecified

== ENCOUNTER → 2024-10-15 09:17 | Outpatient (BNVA) | payer MEDICARE, SELFPAY | PROVIDERS: PCP Internal Medicine; Visit Provider Internal Medicine | DX: E11.9 Type 2 diabetes mellitus without complications (principal); E78.5 Hyperlipidemia, unspecified; I10 Essential (primary) hypertension; Z79.899 Other long term (current) drug therapy | CPT/HCPCS: 99212 ==

== ENCOUNTER 2025-03-24 08:49 | Outpatient (AMB) | payer MEDICARE, SELFPAY ==
--- NOTE | 2025-03-24 09:14 | A.OFFPC_ITS ---
Vital Signs 03/24/25 09:15 Height 5 ft Weight 164 lb BMI 32.0 Intake Visit Reasons: AWV Allergies atorvastatin [Lipitor] Allergy (Unknown, Verified 10/15/24 09:23) Muscle Pain latex Allergy (Unknown, Verified 10/15/24 09:23) Rash pravastatin [Pravachol] Allergy (Unknown, Verified 10/15/24 09:23) Muscle Pain lisinopril Adverse Reaction (Unknown, Verified 10/15/24 09:23) Cough Erythromycin Allergy (Unknown, Uncoded 10/15/24 09:23) upset stomach Tobacco use date assessed: 10/15/24 Dental Screening Dental Screen Date: 07/22/24 [facility] Medical History Sciatica Overweight Hx of bone density study Asthma Hyperlipidemia HTN (hypertension) Diabetes Surgical History No pertinent past surgical history Family History Father Heart disease Mother Diabetes Social History Housing: Apartment Alcohol intake: current Alcohol intake frequency: holidays/special occasions only Patient Tobacco Use Status: Never used Tobacco e-Cigarette/Vaping Use: Never Used service: No Current occupational status: retired Cognitive needs: No Hearing needs: No Vision needs: No Questionnaire PHQ-9 Over the last 2 weeks, how often have you been bothered by any of the following problems? 1. Little interest or pleasure in doing things: not at all 2. Feeling down, depressed, or hopeless: not at all 3. Trouble falling or staying asleep, or sleeping too much: not at all 4. Feeling tired or having little energy: not at all 5. Poor appetite or overeating: not at all 6. Feeling bad about yourself - or that you are a failure or have let yourself or your family down: not at all 7. Trouble concentrating on things, such as reading the newspaper or watching television: not at all 8. Moving or speaking so slowly that other people could have noticed. Or the opposite - being so fidgety or restless that you have been moving around a lot more than usual: not at all 9. Thoughts that you would be better off or of hurting yourself in some way: not at all Total score: 0 Source: Developed by Drs. Kenny Pal, Juanita Tobin, Yonatan Marlow and colleagues, with an educational milana from [employer]. Thrive Questionnaire Date Thrive assessed: 03/24/25 JULIETA-7 AMB Questionnaire JULIETA-7 Date JULIETA - 7 assessed: 07/22/24 Source: Developed by Drs. Kenny Pal, Juanita Tobin, Yonatan Marlow and colleagues, with an educational milana from [employer]. Physical exam (Primary Care) Tobacco/Smoking Status: Tobacco use Status Tobacco use date assessed 10/15/24 10/15/24 09:24 Patient Tobacco Use Status Never used Tobacco 10/15/24 09:19 e-Cigarette/Vaping Use Never Used 10/15/24 09:19 Thrive Assessment: Date of Thrive Assessment Date Thrive assessed 03/24/25 03/24/25 08:49 Coding
[2025-03-24 09:15] VITALS: BP 128/70; PULSE 86; RESP 18; TEMP 36.7; O2SAT 98; BMI 32.0
--- NOTE | 2025-03-24 09:16 | AM.OFFVISMDC ---
Intake Vital Signs 03/24/25 09:15 03/24/25 09:28 Height 5 ft Weight 164 lb BMI 32.0 32.0 BP 128/70 Blood Pressure Location Lt brachial Position Sitting Respiration 18 Pulse 86 Pulse Source Pulse Oximeter Temp 98.0 F Temp Source Oral Pulse Oximetry (%) 98 Oxygen Delivery Method Room Air Intake Visit Reasons: AWV Allergies atorvastatin [Lipitor] Allergy (Unknown, Verified 03/24/25 09:16) Muscle Pain latex Allergy (Unknown, Verified 03/24/25 09:16) Rash pravastatin [Pravachol] Allergy (Unknown, Verified 03/24/25 09:16) Muscle Pain lisinopril Adverse Reaction (Unknown, Verified 03/24/25 09:16) Cough Erythromycin Allergy (Unknown, Uncoded 03/24/25 09:16) upset stomach Medication List - Last Reconciled 03/24/25 by Kina Esparza MD albuterol sulfate 90 mcg/actuation (ProAir HFA) 2 puffs inhalation Q6H PRN amlodipine 5 mg PO DAILY atenolol 100 mg PO DAILY blood sugar diagnostic (Contour Next Test Strips) test once a day DX: E11.9 Dexcom G7 Sensor (blood-glucose sensor) As directed NS empagliflozin-linagliptin 25-5 mg (Glyxambi) 1 tab PO DAILY flash glucose sensor (FreeStyle Shahram 14 Day Sensor kit) As directed lancets (Microlet Lancet) test once a day DX:E11.9 losartan 100 mg PO DAILY metformin 1,000 mg PO BID omeprazole 20 mg PO DAILY Ozempic (semaglutide) 2 mg (0.75 mL) subcut QWEEK NS pravastatin 40 mg PO DAILY HPI AWV HPI Details Initiated the conversation about Advanced Directives. Advanced Directives help? patients prepare for current and future decisions about their medical treatment? and place of care. Discussed with patient that it is a process where a patients? current condition and prognosis are reviewed, their wishes for information? regarding their illness are elicited, and likely medical dilemmas are presented? and options discussed. The form can be amended as needed, reviewed yearly and? make changes as needed IPPE/AWV ? year old presents? for her ? Annual? Wellness Visit, initial visit.? Medical / Social History Reviewed? Past Medical History ?Yes? . ? [place]? of Care / Care Team list updated ?Yes . ? Surgical/Hospitalization? History ?Yes . ? Current Medications? (including OTC and supplements) ?Yes . ? Family History ?Yes? . ? Tobacco? Control form ?Yes . ? AUDIT-C (Alcohol use) form? ?Yes . ? Illicit drug use in Social? History ?Yes . ? Current diagnosis of? depression? ?No ? Appropriate PHQ2/PHQ9? completed ?Yes . ? Data entered by ?Medical? Financial Systems Director and reviewed by provider ? Fall Risk ? Fall? History? Have you had any falls with? injury in the past year? ?No . ? Have you had two or more? falls in the past year? ?No . ? Fall Risk Assessment: ?No? falls in the past year . ? HRA filled out by? the patient, reviewed by Provider and scanned. ? IPPE/AWV ? Balance? Romberg? ?Yes . ? Tandem? walk ?Yes . ? Walk and? Turn ?Yes . ? Rise from? sit to stand ?Yes . ?Vision? Corrective? lens ?Yes ? Vision? screen ? Up-to-date, has an appointment [] for vision? screening and glaucoma screening ?Hearing? Whisper? test ?pass .? Initiated the conversation about Advanced Directives. Advanced Directives help? patients prepare for current and future decisions about their medical treatment? and place of care. Discussed with patient that it is a process where a patients? current condition and prognosis are reviewed, their wishes for information? regarding their illness are elicited, and likely medical dilemmas are presented? and options discussed. The form can be amended as needed, reviewed yearly and? make changes as needed Written? Plan?Completed. See Patient? Documents. PFSH Medical History Sciatica Overweight Hx of bone density study Asthma Hyperlipidemia HTN (hypertension) Diabetes Surgical History No pertinent past surgical history Family History Father Heart disease Mother Diabetes Social History Housing: Apartment Alcohol intake: current Alcohol intake frequency: holidays/special occasions only Patient Tobacco Use Status: Never used Tobacco e-Cigarette/Vaping Use: Never Used service: No Current occupational status: retired Cognitive needs: No Hearing needs: No Vision needs: No Questionnaire Medicare Wellness Checkup [age] What gender do you identify with?: female During the past 4 weeks, how much have you been bothered by emotional problems such as feeling anxious, depressed, irritable, sad or downhearted, and blue?: not at all During the past 4 weeks, has your physical & emotional health limited your social activities with family, friends, neighbors, or groups?: not at all During the past 4 weeks, how much bodily pain have you generally had?: mild pain During the past 4 weeks, was someone available to help you if you needed & wanted help?: yes, as much as I wanted During the past 4 weeks, what was the hardest physical activity you could do for at least 2 minutes?: heavy Can you get to places out of walking distance without help? (For eg., can you travel alone on buses, taxis or drive your car?): Yes Can you go shopping for groceries or clothes without someone's help?: Yes Can you prepare your own meals?: Yes Can you do your housework without help?: Yes Because of any health problems, do you need the help of another person with your personal care needs such as eating, bathing, dressing or getting around the house?: No Can you handle your own money without help?: Yes During the past 4 weeks, how would you rate your health in general?: very good During the past 4 weeks how have things been going for you?: very well; could hardly better Are you having difficulties driving your car?: no Do you always fasten your seat belt when you are in a car?: yes, usually During past 4 weeks, have you been bothered by the following: never: Falling or dizzy when standing up, Sexual problems?, Trouble eating well?, Teeth or denture problems?, Problems using the telephone? and Tiredness or fatigue? Have you fallen 2 or more times in the past year?: No Are you afraid of falling?: Yes Are you a smoker?: no During the past 4 weeks, how many drinks of wine, beer, or other alcoholic beverages did you have?: no alcohol at all Do you exercise for about 20 minutes 3 or more times a week?: yes, most of the time Have you been given information to help with the following?: yes: Hazards in your house that might hurt you? and yes: Keeping track of your medications? How often do you have trouble taking medicines the way you have been told to take them?: I always take medicine as prescribed How confident are you that you can control & manage most of your health problems?: somewhat confident What is your race?: White Mini Mental State Exam (MMSE) Orientation What is the (year) (season) (date) (day) (month)?: year, season, date, day and month Where are we (state) (county) (town or city) (hospital) (floor)?: state, county, town or city, hospital/clinic and floor Registration Name of 3 unrelated objects clearly and slowly, then ask patient to repeat all 3 of them. (1st repeat determines score. Make sure they can repeat all three): object 1, object 2 and object 3 Attention & Calculation (CHOOSE ONE) Spell WORLD backwards (DLROW): 5 letters Recall Ask patient to repeat the 3 items from question #3.: object 1, object 2 and object 3 Language Show patient a wristwatch & ask what it is. Repeat for pencil.: watch and pencil Ask the patient to repeat the phrase 'No ifs, ands, or buts' after you.: correct Ask the patient to 'take a piece of paper with their right hand' 'fold paper in half' 'place paper on floor': take paper in right hand, fold paper in half and place paper on floor Print the sentence 'CLOSE YOUR EYES' on a piece. If patient actually closes eyes then score.: followed written direction Give patient a blank piece of paper & ask to write a sentence. Score if it contains a noun & verb.: sentence contains subject and verb Score Score: 29 PHQ-9 Over the last 2 weeks, how often have you been bothered by any of the following problems? 1. Little interest or pleasure in doing things: not at all 2. Feeling down, depressed, or hopeless: not at all 3. Trouble falling or staying asleep, or sleeping too much: not at all 4. Feeling tired or having little energy: not at all 5. Poor appetite or overeating: not at all 6. Feeling bad about yourself - or that you are a failure or have let yourself or your family down: not at all 7. Trouble concentrating on things, such as reading the newspaper or watching television: not at all 8. Moving or speaking so slowly that other people could have noticed. Or the opposite - being so fidgety or restless that you have been moving around a lot more than usual: not at all 9. Thoughts that you would be better off or of hurting yourself in some way: not at all Total score: 0 Depression Screening Interpretation: Negative Depression Screening Done: Yes 90832 - PHQ-9 Billing: Yes Source: Developed by Drs. Kenny Pal, Juanita Tobin, Yonatan Marlow and colleagues, with an educational milana from [employer]. Review of Systems Const All systems reviewed & are unremarkable except as noted in HPI and below Eyes Reports no additional complaints ENT Reports no additional complaints Card Reports no additional complaints Resp Reports no additional complaints GI Reports no additional complaints Reports no additional complaints Physical Exam Vital Signs: Last Vital Signs Temp 98.0 F 03/24/25 09:15 Pulse 86 03/24/25 09:15 Resp 18 03/24/25 09:15 BP 128/70 03/24/25 09:15 Pulse Ox 98 03/24/25 09:15 Oxygen Delivery Method Room Air 03/24/25 09:15 BMI result Body Mass Index 32.0 Const General: no acute distress HEENT Head: Yes normal to inspection Ears: hearing grossly normal bilaterally Face and sinus: Yes normal facial exam Mouth: Normal oral and palatal mucosa present Throat: Yes posterior oropharynx normal Eyes General: appearance normal, both eyes and all related structures Neck Neck: Yes no lymphadenopathy and Yes supple Resp Effort & Inspection: normal respiratory effort Auscultation: clear to auscultation bilaterally Cardio Rhythm: regular rhythm Heart sounds: S1 normal heart sound present and S2 normal heart sound present GI Inspection: Yes normal to inspection Palpation (GI): Soft to palpation and No hepatosplenomegaly present Percussion: Yes normal to percussion Auscultation: normal bowel sounds Extrem General: Yes no clubbing, cyanosis or edema Immunizations pneumoc 20-shirlene conj-dip cr(PF) 0.5 mL IM syringe Performing Provider: Kina Esparza MD Performing Location: [facility] Administered by: INES Miranda on 03/24/25 10:10 Dose Route Admin Location Dispensed Lot Number Expiration Date [facility] Gas Dispatcher 0.5 mL IM Right Deltoid 0.5 mL [id number] 01/25/26 2802-6112-60 [employer] VIS Given Date VIS Provided VIS Publication Date 03/24/25 Single Vaccine 21 Eligibility Eligibility Date Funding Source Not [facility] Eligible 03/24/25 Private Assessment & Plan Assessment & Plan (1) Diabetes: Code(s): E11.9 - Type 2 diabetes mellitus without complications Plan: A1c is down to 6.7 from 7.3. Continue ADA diet increase physical activity continue current medications, follow-up in 4 months with a fasting blood before (2) HTN (hypertension): Code(s): I10 - Essential (primary) hypertension Plan: Continue current medications (3) Annual physical exam: Code(s): Z00.00 - Encounter for general adult medical examination without abnormal findings Plan: Well-balanced diet regular physical activity discussed with the patient (4) Hyperlipidemia: Code(s): E78.5 - Hyperlipidemia, unspecified Plan: Continue statin Orders: Orders Lipid Panel 4 Months E11.9 - Type 2 diabetes mellitus without complications, I10 - Essential (primary) hypertension Microalbumin, Random (w Creat) 4 Months E11.9 - Type 2 diabetes mellitus without complications, I10 - Essential (primary) hypertension Complete Blood Count Auto Diff 4 Months E11.9 - Type 2 diabetes mellitus without complications, I10 - Essential (primary) hypertension Comprehensive [employer]. Panel Fast 4 Months E11.9 - Type 2 diabetes mellitus without complications, I10 - Essential (primary) hypertension Hemoglobin A1c 4 Months E11.9 - Type 2 diabetes mellitus without complications, I10 - Essential (primary) hypertension Pneumococcal 20 Immunization Today Z23 - Encounter for immunization Quality Reporting (2020) Depression/Bipolar (159/160/161/177) PHQ-9: Total score: 0 Coding Level of Care Code Medicare Subsequent (G0439) Diagnoses Diabetes E11.9 HTN (hypertension) I10 Annual physical exam Z00.00 Hyperlipidemia E78.5 CPT Codes Advance Care Planning - Advance Care Planning discussion: On file, no changes ([id number]) Advance Care Planning - Time spent: 1-15 minutes, on File ([id number]) Additional Codes PHQ-9 - 79467 - PHQ-9 Billing: Yes ([id number]) Advance Care Planning Advance Care Planning discussion: On file, no changes Forms completed: Health Care Proxy Time spent: 1-15 minutes, on File Did not discuss due to Cultural/Spiritual beliefs: Yes
[2025-03-24 09:28] VITALS: BMI 32.0
== END 2025-03-24 10:16 | disposition home or self-care (01) ==
LOC: HO.HMCC 08:49
PROVIDERS: PCP Internal Medicine; Visit Provider Internal Medicine
DX: Z00.00 Encounter for general adult medical examination without abnormal findings (principal); E11.9 Type 2 diabetes mellitus without complications; I10 Essential (primary) hypertension; E78.5 Hyperlipidemia, unspecified; Z23 Encounter for immunization

== ENCOUNTER → 2025-03-24 08:49 | Outpatient (BNVA) | payer MEDICARE, SELFPAY | PROVIDERS: PCP Internal Medicine; Visit Provider Internal Medicine | DX: Z00.00 Encounter for general adult medical examination without abnormal findings (principal); Z23 Encounter for immunization; E11.9 Type 2 diabetes mellitus without complications; E78.5 Hyperlipidemia, unspecified; I10 Essential (primary) hypertension | CPT/HCPCS: 90471; 90677; 96127 ==

== ENCOUNTER 2025-07-07 09:18 | Outpatient (AMB) | payer MEDICARE, SELFPAY ==
[2025-07-07 09:39] VITALS: BP 118/74; PULSE 63; RESP 18; TEMP 36.8; O2SAT 98; BMI 32.0
--- NOTE | 2025-07-07 09:39 | MHC.PC.OV ---
Vital Signs 07/07/25 09:39 Height 5 ft Weight 164 lb BMI 32.0 BP 118/74 Blood Pressure Location Lt brachial Position Sitting Respiration 18 Pulse 63 Pulse Source Pulse Oximeter Temp 98.2 F Temp Source Oral Pulse Oximetry (%) 98 Oxygen Delivery Method Room Air Intake Visit Reasons: 4 months f/up Intake Note: Pt is here today for 4 months follow up visit. Allergies atorvastatin (Lipitor) Allergy (Unknown, Verified 07/07/25 09:48) Muscle Pain latex Allergy (Unknown, Verified 07/07/25 09:48) Rash pravastatin (Pravachol) Allergy (Unknown, Verified 07/07/25 09:48) Muscle Pain lisinopril Adverse Reaction (Unknown, Verified 07/07/25 09:48) Cough Erythromycin Allergy (Unknown, Uncoded 07/07/25 09:48) upset stomach Medication List - Last Reconciled 07/07/25 by Kina Esparza MD albuterol sulfate 90 mcg/actuation (ProAir HFA) 2 puffs inhalation Q6H PRN amlodipine 5 mg PO DAILY atenolol 100 mg PO DAILY blood sugar diagnostic (Contour Next Test Strips) test once a day DX: E11.9 Dexcom G7 Sensor (blood-glucose sensor) As directed NS empagliflozin-linagliptin 25-5 mg (Glyxambi) 1 tab PO DAILY flash glucose sensor (FreeStyle Shahram 14 Day Sensor kit) As directed lancets (Microlet Lancet) test once a day DX:E11.9 losartan 100 mg PO DAILY metformin 1,000 mg PO BID omeprazole 20 mg PO DAILY pravastatin 40 mg PO DAILY tirzepatide (Mounjaro) 10 mg (0.5 mL) subcut QWEEK Tobacco use date assessed: 07/07/25 Fall risk assessment: No Falls in past year Last assessed Fall Risk: 07/07/25 Dental Screening Dental Screen Date: 07/07/25 Did you have a dental visit in the last 12 months?: Yes Did you have a dental problem in the last 6 months where you did not have access to dental care?: No Was dental information given to patient?: Patient has dentist HPI 4 months f/up HPI Details Patient presents for the follow-up of type 2 diabetes hypertension hyperlipidemia stable on current medications. Patient has been taking 2 mg of Ozempic for the last few months and has not lost more weight. She would like to try Mounjaro instead [facility] Medical History Sciatica Overweight Hx of bone density study Asthma Hyperlipidemia HTN (hypertension) Diabetes Surgical History No pertinent past surgical history Family History Father Heart disease Mother Diabetes Social History Housing: Apartment Alcohol intake: current Alcohol intake frequency: holidays/special occasions only Patient Tobacco Use Status: Never used Tobacco e-Cigarette/Vaping Use: Never Used service: No Current occupational status: retired Cognitive needs: No Hearing needs: No Vision needs: No Questionnaire PHQ-9 Over the last 2 weeks, how often have you been bothered by any of the following problems? 1. Little interest or pleasure in doing things: not at all 2. Feeling down, depressed, or hopeless: not at all 3. Trouble falling or staying asleep, or sleeping too much: not at all 4. Feeling tired or having little energy: not at all 5. Poor appetite or overeating: not at all 6. Feeling bad about yourself - or that you are a failure or have let yourself or your family down: not at all 7. Trouble concentrating on things, such as reading the newspaper or watching television: not at all 8. Moving or speaking so slowly that other people could have noticed. Or the opposite - being so fidgety or restless that you have been moving around a lot more than usual: not at all 9. Thoughts that you would be better off or of hurting yourself in some way: not at all Total score: 0 Depression Screening Interpretation: Negative Depression Screening Done: Yes Source: Developed by Drs. Kenny Pal, Juanita Tobin, Yonatan Marlow and colleagues, with an educational milana from [employer]. Thrive Questionnaire Date Thrive assessed: 06/30/25 I am a: Patient What is your living situation today?: I have a steady place to live Within the past 12 months, did the food you bought not last and you didn't have the money to get more?: Never true Within the past 12 months, did you worry whether your food would run out before you got money to buy more?: Never true Do you have trouble paying for medicines?: I choose not to answer this question Do you have trouble getting transportation to medical appointments?: No Do you have trouble paying your heating and electricity bill?: No Do you have trouble taking care of your child, family member or friend?: No Do you have trouble with day-to-day activities such as bathing, preparing meals, shopping, managing finances, etc.?: No Are you currently unemployed and looking for a job?: No Are you interested in more education?: No Please select the resources that you would like help with: None Currently or been in a relationship where the following occur: No concerns reported THRIVE Score: 0 AUDIT C Alcohol Use Questionnaire (AUDIT-C) 1. How often do you have a drink containing alcohol?: Never 3. How often do you have six or more drinks on one occasion?: Never Total Score: 0 JULIETA-7 AMB Questionnaire JULIETA-7 Date JULIETA - 7 assessed: 07/07/25 Feeling nervous, anxious, or on edge: 0 = Not at all Not being able to stop or control worryin = Not at all Worrying too much about different things: 0 = Not at all Trouble relaxin = Not at all Being so restless that it is hard to sit still: 0 = Not at all Becoming easily annoyed or irritable: 0 = Not at all Feeling afraid as if something awful might happen: 0 = Not at all Total JULIETA-7 score (0-4 normal; 5-9 mild; 10-14 moderate; 15-21 severe): 0 Source: Developed by Drs. Kenny Pal, Juanita Tobin, Yonatan Marlow and colleagues, with an educational milana from [employer]. Review of Systems Const All systems reviewed & are unremarkable except as noted in HPI and below ENT Reports no additional complaints Card Reports no additional complaints Resp Reports no additional complaints GI Reports no additional complaints Reports no additional complaints Physical exam (Primary Care) Vital Signs: Last Vital Signs Temp 98.2 F 07/07/25 09:39 Pulse 63 07/07/25 09:39 Resp 18 07/07/25 09:39 BP 118/74 07/07/25 09:39 Pulse Ox 98 07/07/25 09:39 Oxygen Delivery Method Room Air 07/07/25 09:39 BMI result Body Mass Index 32.0 Tobacco/Smoking Status: Tobacco use Status Tobacco use date assessed 07/07/25 07/07/25 09:41 Patient Tobacco Use Status Never used Tobacco 07/07/25 09:41 e-Cigarette/Vaping Use Never Used 07/07/25 09:41 PHQ-9: PHQ-9 Score PHQ-9: Total score 0 07/07/25 09:52 Depression Screening Interpretation: Negative Thrive Assessment: Date of Thrive Assessment Date Thrive assessed 06/30/25 07/07/25 09:41 Currently or been in a relationship where the following occur: No concerns reported Const General: no acute distress HENMT Face and sinus: Yes normal facial exam Eyes General: appearance normal, both eyes and all related structures Resp Effort & Inspection: normal respiratory effort Auscultation: clear to auscultation bilaterally Cardio Rhythm: regular rhythm Heart sounds: S1 normal heart sound present and S2 normal heart sound present GI Inspection: Yes normal to inspection Palpation (GI): Soft to palpation Percussion: Yes normal to percussion Auscultation: normal bowel sounds Coding Level of Care Code Est Pt Level 4 (64850) Diagnoses HTN (hypertension) I10 Hyperlipidemia E78.5 Diabetes E11.9 Assessment & Plan Assessment & Plan (1) HTN (hypertension): Code(s): I10 - Essential (primary) hypertension Category: Medical Plan: Continue current medications (2) Hyperlipidemia: Code(s): E78.5 - Hyperlipidemia, unspecified Category: Medical Plan: Continue statin (3) Diabetes: Code(s): E11.9 - Type 2 diabetes mellitus without complications Category: Medical Plan: A1c is 6.5. ADA diet regular physical activity weight loss discussed with the patient Ozempic will be changed to Mounjaro 10 mg weekly for the first month then the dose will be inccreased depending on patient's side effects. She will follow-up in 4 months with a fasting labs Orders: Orders Comprehensive [place]. Panel Fast 4 Months E11.9 - Type 2 diabetes mellitus without complications, E78.5 - Hyperlipidemia, unspecified, I10 - Essential (primary) hypertension Hemoglobin A1c 4 Months E11.9 - Type 2 diabetes mellitus without complications, E78.5 - Hyperlipidemia, unspecified, I10 - Essential (primary) hypertension Lipid Panel 4 Months E11.9 - Type 2 diabetes mellitus without complications, E78.5 - Hyperlipidemia, unspecified, I10 - Essential (primary) hypertension Microalbumin, Random (w Creat) 4 Months E11.9 - Type 2 diabetes mellitus without complications, E78.5 - Hyperlipidemia, unspecified, I10 - Essential (primary) hypertension Vitamin D 25-OH Total 4 Months E11.9 - Type 2 diabetes mellitus without complications, E78.5 - Hyperlipidemia, unspecified, I10 - Essential (primary) hypertension Medications: New tirzepatide (Mounjaro) 10 mg (0.5 mL) subcut QWEEK 2 mL 1RF Refilled amlodipine 5 mg PO DAILY 90 tabs 3RF Discontinued Ozempic (semaglutide) Discontinued Reason: Doctor's Order 2 mg (0.75 mL) subcut QWEEK 9 mL 3RF NS
== END 2025-07-07 11:17 | disposition home or self-care (01) ==
LOC: HO.HMCC 09:20
PROVIDERS: PCP Internal Medicine; Visit Provider Internal Medicine
DX: I10 Essential (primary) hypertension (principal); E78.5 Hyperlipidemia, unspecified; E11.9 Type 2 diabetes mellitus without complications

== ENCOUNTER → 2025-07-07 09:18 | Outpatient (BNVA) | payer MEDICARE, SELFPAY | PROVIDERS: PCP Internal Medicine; Visit Provider Internal Medicine | DX: I10 Essential (primary) hypertension (principal); E78.5 Hyperlipidemia, unspecified; E11.9 Type 2 diabetes mellitus without complications | CPT/HCPCS: 99212 ==